=== PATIENT | male | born 1950 | race African-American/Black ===

== ENCOUNTER 2017-10-18 06:21 | Inpatient (IN) | payer MEDICARE, MEDICAID ==
[~2017-10-18] VITALS: Ht 172.7 cm; Wt 54.4 kg
[2017-10-18] VITALS (10 sets, daily range): BP systolic 120–146; BP diastolic 59–83; BMI 18.2
--- NOTE | ~2017-10-18 | CN ---
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 HISTORY OF PRESENT ILLNESS: Mr. Guzman who is a very poor historian was brought into the ER with expressive dysphasia. The CT scan showed he has multiple nodules as well as mass in the lung. Now, the patient is more awake and alert, but he is a very poor historian. PAST MEDICAL HISTORY: Nonsignificant. MEDICATIONS: He is not using any medication. REVIEW OF SYSTEMS: As in history of present illness. PAST SURGICAL HISTORY: Nonsignificant. PERSONAL AND SOCIAL HISTORY: The patient is an ex-smoker. FAMILY HISTORY: Noncontributory. PHYSICAL EXAMINATION: GENERAL: Now, the patient is lying comfortably in bed. He is not in acute distress. VITAL SIGNS: The blood pressure 142/89, pulse is 89, respirations 20, temperature 98.1, SpO2 is 99% on room air. HEENT: Conjunctivae are pink. Sclerae are not icteric. NECK: Supple, no JVD. CHEST: There is crackle at the left apex. No wheezing. HEART: Rhythm regular, normal sound. No murmur. ABDOMEN: Soft, bowel sounds present. No hepatosplenomegaly. RECTAL: Deferred. EXTREMITIES: No cyanosis, no clubbing. There is no pedal edema. SKIN: Warm, normal turgor. CENTRAL NERVOUS SYSTEM: The patient is awake and alert. There are no obvious cranial nerve abnormality. The gait was not tested. LABORATORY DATA AND DIAGNOSTIC STUDIES: CT scan of the head showed there are multiple nodules in the brain. Confirmed by the MRI of the head. There is also some of the lesion that showed associated hemorrhage. CT scan of the chest: There is a mass lesion in the right upper lobe. There are low density mediastinal lymph node. There are moderate centrilobular and paraseptal emphysematous changes. There is small area of enhancement in the liver. There is prostatic hypertrophy. IMPRESSION: CONSULT REPORT [id number] SAMANTHA GUZMAN 1. 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 2. Mediastinal lymphadenopathy. 3. Brain lesion, most likely metastatic. 4. Ex-smoker. 5. Underlying chronic obstructive pulmonary disease. RECOMMENDATION: 1. The patient has already been scheduled for CT-guided lung biopsy in the morning. 2. Continue nebulized medication. The patient's white cell count is normal. There is no evidence of infectious process. Dr. Crawley has been consulted. Dr. Martins, thank you for involving me in the care of Mr. Guzman. TRANSINT:[id number] Voice Confirmation ID: [id number] DOCUMENT ID: [id number] SONNY DAN MD at 1110 CC: [id number] DICTATION DATE: 10/18/171737 GENERAL MACHINIST: 10/18/17 1847 DIS IN 10/22/17 [facility] [address] [place] [address]
[2017-10-18 07:30] LABS: BASOPHILS 0.2 % (0-2); EOSINOPHILS 1.7 % (0-7); HEMATOCRIT 43.2 % (42.0-54.0); HEMOGLOBIN 14.8 g/dL (13.5-17.5); IMMATURE GRANULOCYTES 0.5 % (0-5); LYMPHOCYTES 22.2 % (15-50); MCH 31.8 pg (26.0-34.0); MCHC 34.3 g/dL (31.0-37.0); MCV 92.7 fL (80.0-100.0); MEAN PLATELET VOLUME 9.3 fL (7.4-10.4); MONOCYTES 12.9 % (2-11); NEUTROPHILS 62.5 % (40-80); PLATELET COUNT 214 10x3/uL (130-400); RBC 4.66 10x6/uL (4.20-6.10); RDW 13.6 % (11.5-14.5); WBC 5.7 10x3/uL (4.8-10.8)
[2017-10-18 07:31] LABS: ALBUMIN 3.2 g/dL (3.4-5.0); ALKALINE PHOSPHATASE 160 U/L (46-116); ALT (SGPT) 32 U/L (10-68); BILIRUBIN - TOTAL 0.68 mg/dL (0.2-1.3); CALC OSMOLALITY 275 mosm/kg (275-300); CALCIUM 9.3 mg/dL (8.5-10.1); CARBON DIOXIDE 26.7 mmol/L (21.0-32.0); CHLORIDE - SERUM 104 mmol/L (98-107); CKMB 0.5 U/L (0.0-3.6); GLUCOSE 95 mg/dL (74-106); POTASSIUM - SERUM 4.2 mmol/L (3.5-5.1); PROTEIN - SERUM 3.2 g/dL (6.4-8.2); SODIUM 138 mmol/L (136-145); TROPONIN-I < 0.017 ng/mL (0.000-0.060); UREA NITROGEN 13 mg/dL (7-18); eGFR NON AFRICAN AMERICAN 79 mL/min (90-120)
[2017-10-18 09:02] LABS: AMORPHOUS SEDIMENT <1+ /lpf (NONE SEEN); APPEARANCE HAZY (CLEAR); BACTERIA MANY /hpf (NONE SEEN); BILIRUBIN NEGATIVE (NEGATIVE); COLOR YELLOW (YELLOW); EPITHELIAL CELLS 0-5 /hpf (0-5); GLUCOSE NEGATIVE (NEGATIVE); KETONE NEGATIVE (NEGATIVE); MUCUS >1+ /lpf (NONE SEEN); NITRITE NEGATIVE (NEGATIVE); PROTEIN TRACE mg/dL (NEGATIVE); RED CELLS - URINE RARE /hpf (0-5); SPECIFIC GRAVITY 1.015 (1.005-1.020); WHITE CELLS - URINE 0-5 /hpf (0-5)
[2017-10-18 11:14] LABS: INR 1.05 (0.85-1.17); PROTIME 13.3 SECONDS (11.6-15.0)
[2017-10-18 17:00] LABS: BASOPHILS 0.3 % (0-2); EOSINOPHILS 2.1 % (0-7); HEMATOCRIT 44.5 % (42.0-54.0); HEMOGLOBIN 15.3 g/dL (13.5-17.5); IMMATURE GRANULOCYTES 0.6 % (0-5); LYMPHOCYTES 25.7 % (15-50); MCH 31.9 pg (26.0-34.0); MCHC 34.4 g/dL (31.0-37.0); MCV 92.7 fL (80.0-100.0); MEAN PLATELET VOLUME 9.4 fL (7.4-10.4); MONOCYTES 9.2 % (2-11); NEUTROPHILS 62.1 % (40-80); PLATELET COUNT 219 10x3/uL (130-400); RDW 13.6 % (11.5-14.5); WBC 6.7 10x3/uL (4.8-10.8)
[2017-10-18 17:10] LABS: APTT 31.2 SECONDS (22.8-39.4); INR 1.01 (0.85-1.17); PROTIME 12.9 SECONDS (11.6-15.0)
[2017-10-19] VITALS: BP 99/69
[2017-10-19 05:20] LABS: BASOPHILS 0.3 % (0-2); EOSINOPHILS 1.5 % (0-7); HEMATOCRIT 41.7 % (42.0-54.0); HEMOGLOBIN 14.4 g/dL (13.5-17.5); IMMATURE GRANULOCYTES 0.5 % (0-5); LYMPHOCYTES 26.1 % (15-50); MCH 31.7 pg (26.0-34.0); MCHC 34.5 g/dL (31.0-37.0); MCV 91.9 fL (80.0-100.0); MEAN PLATELET VOLUME 9.6 fL (7.4-10.4); MONOCYTES 10.5 % (2-11); NEUTROPHILS 61.1 % (40-80); PLATELET COUNT 215 10x3/uL (130-400); RBC 4.54 10x6/uL (4.20-6.10); RDW 13.6 % (11.5-14.5); WBC 6.2 10x3/uL (4.8-10.8)
[2017-10-19 05:23] LABS: INR 1.03 (0.85-1.17); PROTIME 13.1 SECONDS (11.6-15.0)
[2017-10-19 05:24] LABS: APTT 32.3 SECONDS (22.8-39.4)
[2017-10-19 05:26] LABS: CALC OSMOLALITY 273 mosm/kg (275-300); CALCIUM 9.1 mg/dL (8.5-10.1); CARBON DIOXIDE 28.7 mmol/L (21.0-32.0); CHLORIDE - SERUM 103 mmol/L (98-107); GLUCOSE 90 mg/dL (74-106); SODIUM 137 mmol/L (136-145); UREA NITROGEN 13 mg/dL (7-18); eGFR NON AFRICAN AMERICAN 79 mL/min (90-120)
[2017-10-19 05:52] VITALS: BP 110/70
[2017-10-19 08:05] VITALS: BP 119/75
[2017-10-19 12:42] VITALS: Ht 172.7 cm; Wt 54.4 kg
[2017-10-19 15:48] VITALS: BP 103/71
[2017-10-19 21:36] VITALS: BP 124/77
[2017-10-20 04:00] VITALS: BP 109/73
[2017-10-20 04:32] LABS: BASOPHILS 0.3 % (0-2); EOSINOPHILS 1.5 % (0-7); HEMATOCRIT 42.8 % (42.0-54.0); HEMOGLOBIN 14.9 g/dL (13.5-17.5); IMMATURE GRANULOCYTES 0.8 % (0-5); LYMPHOCYTES 28.3 % (15-50); MCH 31.8 pg (26.0-34.0); MCHC 34.8 g/dL (31.0-37.0); MCV 91.3 fL (80.0-100.0); MEAN PLATELET VOLUME 9.4 fL (7.4-10.4); MONOCYTES 12.4 % (2-11); NEUTROPHILS 56.7 % (40-80); PLATELET COUNT 226 10x3/uL (130-400); RBC 4.69 10x6/uL (4.20-6.10); RDW 13.4 % (11.5-14.5); WBC 6.1 10x3/uL (4.8-10.8)
[2017-10-20 04:45] LABS: CALC OSMOLALITY 276 mosm/kg (275-300); CALCIUM 9.1 mg/dL (8.5-10.1); CARBON DIOXIDE 28.3 mmol/L (21.0-32.0); CHLORIDE - SERUM 102 mmol/L (98-107); GLUCOSE 95 mg/dL (74-106); POTASSIUM - SERUM 3.9 mmol/L (3.5-5.1); SODIUM 138 mmol/L (136-145); UREA NITROGEN 14 mg/dL (7-18); eGFR NON AFRICAN AMERICAN 79 mL/min (90-120)
[2017-10-20 07:14] LABS: APTT 34.3 SECONDS (22.8-39.4); INR 1.02 (0.85-1.17)
[2017-10-20 08:28] VITALS: BP 118/67
[2017-10-20 12:08] VITALS: BP 116/74
[2017-10-20 20:00] VITALS: BP 128/77
[2017-10-21] VITALS: BP 132/74
[2017-10-21 04:00] VITALS: BP 121/77
[2017-10-21 05:22] LABS: BASOPHILS 0.3 % (0-2); EOSINOPHILS 0.6 % (0-7); HEMATOCRIT 41.7 % (42.0-54.0); HEMOGLOBIN 14.4 g/dL (13.5-17.5); IMMATURE GRANULOCYTES 0.5 % (0-5); LYMPHOCYTES 20.9 % (15-50); MCH 31.5 pg (26.0-34.0); MCHC 34.5 g/dL (31.0-37.0); MCV 91.2 fL (80.0-100.0); MEAN PLATELET VOLUME 9.8 fL (7.4-10.4); MONOCYTES 9.3 % (2-11); NEUTROPHILS 68.4 % (40-80); PLATELET COUNT 235 10x3/uL (130-400); RBC 4.57 10x6/uL (4.20-6.10); RDW 13.2 % (11.5-14.5)
[2017-10-21 05:39] LABS: CALC OSMOLALITY 266 mosm/kg (275-300); CALCIUM 9.4 mg/dL (8.5-10.1); CARBON DIOXIDE 26.4 mmol/L (21.0-32.0); CHLORIDE - SERUM 100 mmol/L (98-107); POTASSIUM - SERUM 3.9 mmol/L (3.5-5.1); SODIUM 134 mmol/L (136-145); UREA NITROGEN 14 mg/dL (7-18); eGFR NON AFRICAN AMERICAN 79 mL/min (90-120)
[2017-10-21 05:41] LABS: WBC 7.9 10x3/uL (4.8-10.8)
[2017-10-21 05:45] LABS: GLUCOSE 70 mg/dL (74-106)
[2017-10-21 09:10] VITALS: BP 138/75
[2017-10-21 12:22] VITALS: BP 127/74
[2017-10-21 16:13] VITALS: BP 129/73
[2017-10-21 20:29] VITALS: BP 131/80
[2017-10-22 00:21] VITALS: BP 136/82
[2017-10-22 04:06] VITALS: BP 117/81
[2017-10-22 05:51] LABS: BASOPHILS 0.1 % (0-2); EOSINOPHILS 0.4 % (0-7); HEMATOCRIT 43.5 % (42.0-54.0); HEMOGLOBIN 15.1 g/dL (13.5-17.5); IMMATURE GRANULOCYTES 0.4 % (0-5); LYMPHOCYTES 15.8 % (15-50); MCH 31.6 pg (26.0-34.0); MCHC 34.7 g/dL (31.0-37.0); MEAN PLATELET VOLUME 9.6 fL (7.4-10.4); MONOCYTES 11.9 % (2-11); NEUTROPHILS 71.4 % (40-80); PLATELET COUNT 240 10x3/uL (130-400); RBC 4.78 10x6/uL (4.20-6.10); RDW 13.3 % (11.5-14.5); WBC 9.6 10x3/uL (4.8-10.8)
[2017-10-22 06:33] LABS: CALC OSMOLALITY 273 mosm/kg (275-300); CARBON DIOXIDE 25.6 mmol/L (21.0-32.0); CHLORIDE - SERUM 101 mmol/L (98-107); POTASSIUM - SERUM 3.7 mmol/L (3.5-5.1); SODIUM 136 mmol/L (136-145); UREA NITROGEN 15 mg/dL (7-18); eGFR NON AFRICAN AMERICAN 79 mL/min (90-120)
[2017-10-22 06:43] LABS: GLUCOSE 123 mg/dL (74-106)
[2017-10-22 09:23] VITALS: BP 110/78
[2017-10-22 12:44] VITALS: BP 121/70
[2017-10-22 17:00] VITALS: BP 116/71
== END 2017-10-22 18:42 | disposition home health service (06) | DRG 180 ==
LOC: EDBD 06:21 → D.ER 06:21 → D.EDHOLD 10:57 → D.MS 10:57
PROVIDERS: Emergency Medicine; General Practice; Internal Medicine Pulmonary Disease; Radiology Vascular & Interventional Radiology; Specialist
PROC: 0W9930Z Drainage of Right Pleural Cavity with Drainage Device, Percutaneous Approach (ICD-10-PCS; 2017-10-20)
PROC: 0BBK3ZX Excision of Right Lung, Percutaneous Approach, Diagnostic (ICD-10-PCS; principal; 2017-10-20 14:30)
DX: C34.91 Malignant neoplasm of unspecified part of right bronchus or lung (principal); G93.6 Cerebral edema; C79.31 Secondary malignant neoplasm of brain; Z68.1 Body mass index [BMI] 19.9 or less, adult; J95.811 Postprocedural pneumothorax; R63.4 Abnormal weight loss; R59.1 Generalized enlarged lymph nodes; Z87.891 Personal history of nicotine dependence; Z51.5 Encounter for palliative care